=== PATIENT | female | born 1975 | race Caucasian/White ===

== ENCOUNTER → 2017-10-20 12:45 | Outpatient (CLI) | payer OTHER, SELFPAY ==
--- NOTE | 2017-10-20 12:47 | HPBI_ITS ---
MAMMOGRAPHY - BILATERAL DIAGNOSTIC REASON FOR EXAM: Female, 41 years old. Bilateral breast pain PERTINENT HISTORY: . Implants TECHNIQUE: Digital examination. Mediolateral oblique (MLO) and craniocaudad (CC) views of both breasts were obtained, along with implant displaced views and 3-D tomosynthesis. CAD: CAD was performed on this study. COMPARISON: None. FINDINGS: Breast Composition: The breasts are heterogeneously dense, which may obscure small masses. There are no dominant masses or suspicious calcifications. Implants intact and free of complication No other significant abnormalities are identified. HPBI/DIAG MAMM W/CAD, BILAT IMPRESSION: Negative diagnostic mammogram. Yearly followup recommended. ASSESSMENT CATEGORY: BIRADS Category 2: Benign. A letter regarding these results will be sent to the patient by the facility within 30 days. FOLLOW UP RECOMMENDATION: Yearly follow up mammogram recommended. (A) BR2 Approximately 10% of breast cancers are not detected by mammography. A normal mammogram should not delay biopsy of a clinically suspicious abnormality. Electronically Signed: Casey Tobar MD at 14:26 EDT , Service support ,
== END ==
PROVIDERS: Family Provider Family Medicine; PCP Family Medicine; Visit Provider Family Medicine
DX: Z12.31 Encounter for screening mammogram for malignant neoplasm of breast (principal); Z98.82 Breast implant status
CPT/HCPCS: 77062; 77066; G0279

== ENCOUNTER → 2017-12-02 11:15 | Outpatient (CLI) | payer OTHER, SELFPAY ==
--- NOTE | 2017-12-02 11:18 | MRI_ITS ---
STUDY: MRI LUMBAR SPINE WITHOUT CONTRAST REASON FOR EXAM: Female, 42 years old. Low back pain TECHNIQUE: Standardized fat and water weighted pulse sequences were obtained in the sagittal and axial planes. COMPARISON: None FINDINGS: No evidence for acute fracture or subluxation. Small interosseous hemangioma within the L2 vertebral body T12-L1: Normal endplates. Normal disc height, hydration and morphology. Normal bilateral facet joints. Normal central canal and bilateral lateral recesses. Normal bilateral intervertebral neural foramina. Normal lumbar lordosis. There is no substantial scoliosis. Normal conus medullaris that terminates at T12-L1 L1-2: Normal endplates. Normal disc height, hydration and morphology. Normal bilateral facet joints. Normal central canal and bilateral lateral recesses. Normal bilateral intervertebral neural foramina. L2-3: Normal endplates. Normal disc height, hydration and morphology. Normal bilateral facet joints. Normal central canal and bilateral lateral recesses. Normal bilateral intervertebral neural foramina. L3-4: Normal endplates. Normal disc height, hydration and mild annular bulge with associated small central disc protrusion.. Normal bilateral facet joints. Mild narrowing of the central canal. Normal bilateral lateral recesses. Normal bilateral intervertebral neural foramina. L4-5: Normal endplates. Normal disc height, desiccation and mild annular bulge.. Mild facet arthropathy.. Normal central canal . Mild bilateral recess stenosis. Normal bilateral intervertebral neural foramina. L5-S1: Degenerative endplate changes.. Normal disc height, desiccation and mild annular bulge.. Bilateral facet arthropathy.. Normal central canal. Moderate bilateral recess and neuroforaminal stenosis Normal visualized sacral ala. Normal visualized paraspinous soft tissue structures. MRI/Spine Lumbar (Routine) IMPRESSION: No evidence for acute fracture or subluxation. Spinal stenosis at L3-4, L4-5 and L5-S1 secondary to disc disease and bony hypertrophy. Electronically Signed: Toni Villagran MD at 20:12 EDT , Service support ,
== END ==
PROVIDERS: Family Provider Family Medicine; PCP Family Medicine; Visit Provider Family Medicine
DX: M51.37 Other intervertebral disc degeneration, lumbosacral region (principal); M89.38 Hypertrophy of bone, other site; M48.07 Spinal stenosis, lumbosacral region
CPT/HCPCS: 72148

== ENCOUNTER 2017-12-03 13:30 | Outpatient (RCR) | payer OTHER, SELFPAY ==
--- NOTE | 2017-10-14 11:07 | HP.PTEVAL ---
Patient's Visit Information FREDY BAUMANN is a 41 year old F referred to Physical Therapy by Irma ALMEIDA with a diagnosis of LOW BACK PAIN. Date of Evaluation: 10/14/17 Physical Therapist: Rachel Sung - Visit Plan Frequency: 2-3x /Week Duration: 4-6 Weeks Plan: POSTURE CORRECTION/STRENGTHENING, INSTRUCTION IN APPROPRIATE BODY MECHANICS AND ACTIVITY MODIFICATIONS. DLS STARTING WITH A NEUTRAL SPINE PROGRESSING ROM TOLERATED. NAEEM LE ROM, STRETCHING AND STRENGTHENING. HEP INSTRUCTION. - Subjective Subjective: Work/Leisure: [employer]. [employer]. MOSTLY DESKWORK/SALES. Disability: NO. Present symptoms: NAEEM LOW BACK PAIN. PATIENT DENIES NAEEM LE PAIN, NUMBNESS OR TINGLING. Present since: JUN 2017. Pain Scale: WORST 6/10, LEAST 2/10. Currently: 11/04. Commenced as a result of: NO APPARENT REASON. Symptoms at onset: LOWER LEFT BACK. Worse: SMALL MVMTS. SOMETIMES WALKING. SOMETIMES SITTING. SOMETIMES LYING IN BED. Better: CHANGE OF POSITION SOMETIMES HELPS. Disturbed sleep: YES. Previous history/Previous treatment: EPISODIC LBP SINCE ABOUT 2012. MAINLY SELF MANAGED. ABOUT 6 CHIROPRACTIC TREATMENTS A COUPLE YEARS AGO - NO EFFECT. Coughing/sneezing/straining: POSITIVE. Gait: MULTIPLE FALLS SINCE JUNE DUE TO LBP HITTING WHILE WALKING. MORE CAUTIOUS NOW. Difficulty initiating urinatin: NO. Accidents: NO. Unexplained weight loss: NO. Imaging: LUMBAR X-RAY AUG 2017 - PATIENT REPORTS THE DOCTOR TOLD HER THERE IS A LITTLE BIT OF ARTHRITIS. PMH: ASTHMA, ALLERGIES. Recent major surgery: UNREMARKABLE. OTHER: 2013 MRI LUMBAR BUT NOT SURE OF THE RESULTS. IT WAS DONE AT [facility]. - Objective Sitting Posture: POOR. Standing Posture: FAIR. Lordosis: NORMAL. Lateral shift: NO. Relevant shift: N/A. Active Correction of posture: NE. Other Observations: INDEP GAIT INTO PT WITHOUT ANY ASSITIVE DEVICES BUT WITH DECREASED CADANCE. Motor deficit: NAEEM LE STRENGTH 5/5 WITH MMT EXCEPT HIPS GRADED 4/5 AND APPEAR TO BE PAIN LIMITED. Sensory deficit: NAEEM LE LIGHT TOUCH SENSATION IS INTACT AND SYMMETRICAL. ROM deficit: NAEEM LE'S WFL. Reflexes: 2/2 NAEEM LE'S. Dural Signs: MILD POSITIVE NAEEM LE'S. Lumbar mvmt loss: flex - MOD. ext - YAMILE. R SG - MOD. L SG - MOD. Core strength: POOR. Palpation: TENDERNESS WITH PALPATION OF THE L5 SI REGION. INCREASED MUSCLE TONE OF LUMBAR PARASPINALS AND ALSO TENDERNESS NAEEM. OTHER: PATIENT IS PLEASANT AND COOPERATIVE TO WORK WITH. SHE APPEARS TO BE IN MORE PAIN THAN SHE REPORTS EVIDENCED BY GUARDING WITH GAIT TRANSFERS AND TESTING. - Goals Goal 1:: DECREASE C/O LBP Goal Time Frame: 4-6 Weeks Goal 2:: IMPROVE SITTING, STANDING, WALKING, BENDING, LIFTING, ADL, WORK AND SLEEP FUNCTION Goal Time Frame: 4-6 Weeks Goal 3:: INSTRUCT IN PROPHYLAXIS Goal Time Frame: 4-6 Weeks - Rehabilitation Potential Rehabilitation Potential: Fair - Anticipated Interventions Patient/Client Instruction: Educate patient on: Condition, Plan of Care, Risk Factors, Benefits of Fitness Program For the Purpose of:: To improve self management Therapeutic Exercise to Include: Strength training, Body mechanics, Postural training, Dynamic Lumbar Stabilization For the Purpose of:: To decrease pain, To improve ability of physical actions for home/community/work/leisure Manual Therapy Techniques to Include: Soft tissue mobilization For the Purpose of:: To decrease pain, To increase ROM TENS: Yes IF ES: Yes Cryotherapy (ice pack, ice massage): Yes Thermo therapy (hot pack): Yes Ultrasound (thermal/non thermal): Yes For the Purpose of:: To decrease pain, To decrease swelling/inflammation, To increase ROM Thank you for the opportunity to evaluate your patient. For Medicare and Medicare HMO plans, please review the plan of care and approve it. It will need to be FAXED BACK to us at [phone] for Medicare purposes. Please let me know if there are questions or concerns regarding this plan of care. Physician Signature: Date:
--- NOTE | 2018-04-14 12:37 | HP.PT.NRP ---
HP - Discharge Summary (1) - Patient Information FREDY BAUMANN was seen in my office for initial evaluation on 10/14/17. The following Plan of Care was established for this patient: Initial Frequency: 2-3x /Week Initial Duration: 4-6 Weeks - Anticipated Interventions Patient/Client Instruction: Educate patient on: Condition, Plan of Care, Risk Factors, Benefits of Fitness Program For the Purpose of:: To improve self management Therapeutic Exercise to Include: Strength training, Body mechanics, Postural training, Dynamic Lumbar Stabilization For the Purpose of:: To decrease pain, To improve ability of physical actions for home/community/work/leisure Manual Therapy Techniques to Include: Soft tissue mobilization For the Purpose of:: To decrease pain, To increase ROM TENS: Yes IF ES: Yes Cryotherapy (ice pack, ice massage): Yes Thermo therapy (hot pack): Yes Ultrasound (thermal/non thermal): Yes For the Purpose of:: To decrease pain, To decrease swelling/inflammation, To increase ROM This patient was last seen in our office . Pertinent comments regarding their Physical therapy will appear below: This patient has not returned to Physical Therapy and is appropriate to return to MD for further follow-up as needed. At this point I will be discontinuing this patient from physical therapy. I would be happy to see this patient again in the future if found appropriate by the physician. Thank you! Rachel Sung
== END 2017-12-03 19:00 | disposition home or self-care (01) ==
LOC: PT 13:30
PROVIDERS: Family Provider Family Medicine; PCP Family Medicine; Visit Provider Family Medicine
DX: M54.5 Low back pain (principal)
CPT/HCPCS: 97014; 97035; 97110; 97113; 97140; 97161; 97530; G0283

== ENCOUNTER → 2018-10-23 09:46 | Outpatient (CLI) | payer OTHER, SELFPAY ==
[2018-10-23 09:27] VITALS: BMI 24.3
--- NOTE | 2018-10-23 09:47 | RAD_ITS ---
STUDY: X-RAY - LEFT KNEE REASON FOR EXAM: Pain. TECHNIQUE: 4 view(s) of the knee. COMPARISON: None. FINDINGS: Normal visualized distal femur. Normal visualized proximal tibia and fibula. Normal proximal tibiofibular articulation. Normal medial femorotibial compartment. Normal lateral femorotibial compartment. Normal patellofemoral articulation. The soft tissue structures are unremarkable. RAD/Knee 4 or More Views IMPRESSION: Normal x-ray examination of the left knee. Electronically Signed: Arnaldo Delcid MD at 14:50 EDT Tel , Service support ,
== END ==
PROVIDERS: Family Provider Family Medicine; PCP Family Medicine; Referring Provider Physician Assistant; Visit Provider Physician Assistant
DX: M25.562 Pain in left knee (principal)
CPT/HCPCS: 73564

== ENCOUNTER → 2018-10-23 09:49 | Outpatient (CLI) | payer OTHER, SELFPAY ==
[2018-10-23 09:27] VITALS: BMI 24.3
--- NOTE | 2018-10-23 09:47 | RAD_ITS ---
STUDY: X-RAY - RIGHT KNEE REASON FOR EXAM: Pain. TECHNIQUE: 4 view(s) of the knee. COMPARISON: None. FINDINGS: Normal visualized distal femur. Normal visualized proximal tibia and fibula. Normal proximal tibiofibular articulation. Normal medial femorotibial compartment. Normal lateral femorotibial compartment. Normal patellofemoral articulation. The soft tissue structures are unremarkable. RAD/Knee 4 or More Views IMPRESSION: Normal x-ray examination of the right knee. Electronically Signed: Arnaldo Delcid MD at 14:49 EDT Tel , Service support ,
== END ==
LOC: HPRAD 09:49
PROVIDERS: Family Provider Family Medicine; PCP Family Medicine; Referring Provider Physician Assistant; Visit Provider Physician Assistant
DX: M25.561 Pain in right knee (principal); M25.562 Pain in left knee
CPT/HCPCS: 73564

== ENCOUNTER 2018-11-03 10:30 | Outpatient (RCR) | payer OTHER, SELFPAY ==
[2018-10-23 09:27] VITALS: BMI 24.3
--- NOTE | 2018-10-27 10:08 | HP.PTEVAL ---
Patient's Visit Information FREDY BAUMANN is a 43 year old F referred to Physical Therapy by ALANNA Tse with a diagnosis of B knee patello femoral pain. Date of Evaluation: 10/27/18 Physical Therapist: Vasiliy Smith PT, ATC - Visit Plan Frequency: 2x /Week Duration: 3 Weeks Plan: Core strengthening, LE stretching, LE strengthening (VMO and hip abductors), bike, adn HEP - Subjective Findings: Pt reports Bilat knees have been sore for approximately one month. Pt reports pain has progressively worsened over this time span. Pt reports she is an avid walk/runner, and this may have been what has caused her pain. Pt reports her pain is mostly on the medial cpmpartment of B knees. Pt denies her knees popping, locking up, or giving out at this time. Pt had xrays, which revealed no positive findings. No LE tingling or numbness at this time. No PMHx of knee pain. No sleep difficulty secondary to pain. Pt reports squatting increases her pain. Pt reports she also has pain when she is performing her run/walking activites. Nothing but meds helps to decrease her pain. 2/10 pain at rest, 8/10 pain at worst. - Pain B knees Pain Intensity (Out of 10): 2 Pain Intensity Range: 8 - Objective Neuro: B LE sensation is WNL to light touch. B achilles reflex= 2/3. Palpation: Minimal to no crepitus this date. No obvious deformity. Mild pain on medial aspect of B knees. ROM: B knee 0-135. MMT: B knee ext= 4/5 and is painful. B knee flex= 5/5. Special tests: Pos mcconnels sign Bilat knees, pos 90/90, - Goals Goal 1:: Decrease B knee pain x 50% to aid with walking tolerance Goal Time Frame: 2-4 Weeks Goal 2:: Increase B LE flexibility x 1 grade to aid with decreasing pain. Goal Time Frame: 2-4 Weeks Goal 3:: Increase B knee strength x 1 grade to aid with decreasing pain. Goal Time Frame: 2-4 Weeks Goal 4:: I with HEP Goal Time Frame: 2-4 Weeks - Rehabilitation Potential Physical Therapy Diagnosis: Pt has b knee pain, weakness, and difficulty with running activity secondary to patellofemoral syndrome. Rehabilitation Potential: Good - Anticipated Interventions Patient/Client Instruction: Educate patient on: Condition, Plan of Care For the Purpose of:: To improve self management Therapeutic Exercise to Include: Strength training, Endurance training, Balance training, Flexibilty training, Dynamic Lumbar Stabilization For the Purpose of:: To decrease pain, To increase ROM, To improve muscle performance and motor function Cryotherapy (ice pack, ice massage): Yes For the Purpose of:: To decrease pain Thank you for the opportunity to evaluate your patient. For Medicare and Medicare HMO plans, please review the plan of care and approve it. It will need to be FAXED BACK to us at [phone] for Medicare purposes. For Medicare only, by signing this I certify the plan of care. Please let me know if there are questions or concerns regarding this plan of care. Physician Signature: Date:
--- NOTE | 2019-02-09 09:15 | HP.PT.NRP ---
HP - Discharge Summary (1) - Patient Information FREDY BAUMANN was seen in my office for initial evaluation on 10/27/18. The following Plan of Care was established for this patient: Initial Frequency: 2x /Week Initial Duration: 3 Weeks - Anticipated Interventions Patient/Client Instruction: Educate patient on: Condition, Plan of Care For the Purpose of:: To improve self management Therapeutic Exercise to Include: Strength training, Endurance training, Balance training, Flexibilty training, Dynamic Lumbar Stabilization For the Purpose of:: To decrease pain, To increase ROM, To improve muscle performance and motor function Cryotherapy (ice pack, ice massage): Yes For the Purpose of:: To decrease pain This patient was last seen in our office . Pertinent comments regarding their Physical therapy will appear below: Pt was treated for one followup PT visit for her B knee pain through the date of 11/03/18. Pt has not returned since that date and is discontinued at this time. At this point I will be discontinuing this patient from physical therapy. I would be happy to see this patient again in the future if found appropriate by the physician. Thank you! Vasiliy Smith, PT, ATC
== END 2018-11-03 19:00 | disposition home or self-care (01) ==
LOC: PT 10:30
PROVIDERS: Family Provider Family Medicine; PCP Family Medicine; Referring Provider Physician Assistant; Visit Provider Physician Assistant
DX: M22.2X1 Patellofemoral disorders, right knee (principal); M25.552 Pain in left hip; M25.551 Pain in right hip
CPT/HCPCS: 97110; 97161

== ENCOUNTER → 2023-10-08 | Outpatient (CLI) | payer OTHER, SELFPAY | END | disposition home or self-care (01) | LOC: PSN 10:55 | PROVIDERS: PCP Nurse Practitioner Family; Referring Provider Nurse Practitioner Family; Visit Provider Nurse Practitioner Family | DX: J45.20 Mild intermittent asthma, uncomplicated (principal) | CPT/HCPCS: 94060; 94726; 94729 ==

== ENCOUNTER → 2023-11-12 | Outpatient (CLI) | payer OTHER, SELFPAY ==
--- NOTE | 2023-11-12 12:39 | BI_ITS ---
MAMMOGRAPHY - BILATERAL SCREENING REASON FOR EXAM: Female, 48 years old. Routine annual screening examination. PERTINENT HISTORY: Aunt with breast cancer. History of bilateral breast implants. TECHNIQUE: Digital bilateral breast izaiah (3D mammographic acquisition) in the CC and MLO projections. 2-D mediolateral oblique (MLO) and craniocaudad (CC) views of both breasts were obtained. CAD: Full Field Digital Mammography with Computer Added Detection was performed. COMPARISON: Comparison is made with prior outside examination dated November 21, 2021. FINDINGS: Breast Composition: The breasts are heterogeneously dense, which may obscure small masses. There are no dominant masses or suspicious calcifications. Stable appearance of the bilateral breast implants. No other significant abnormalities are identified. There has been no significant change since the prior study. BI/SCRN MAMM (CAD)W/IZAIAH BILAT IMPRESSION: Stable bilateral screening mammogram. Yearly follow-up mammogram recommended. (A) ASSESSMENT CATEGORY: BIRADS Category 2: Benign. A letter regarding these results will be sent to the patient by the facility within 30 days. Approximately 10% of breast cancers are not detected by mammography. A normal mammogram should not delay biopsy of a clinically suspicious abnormality. [id number] Electronically Signed: Harjit Purcell MD at 14:14 EDT ,
== END | disposition home or self-care (01) ==
LOC: OPBI 12:37
PROVIDERS: PCP Nurse Practitioner Family; Referring Provider Nurse Practitioner Family; Visit Provider Nurse Practitioner Family
DX: Z12.31 Encounter for screening mammogram for malignant neoplasm of breast (principal)
CPT/HCPCS: 77063; 77067

== ENCOUNTER → 2024-04-28 | Outpatient (CLI) | payer OTHER, SELFPAY ==
[2024-04-28 13:03] LABS: Hematocrit 39.9 % (37-47); Hemoglobin 12.7 g/dL (12.0-15.0); Mean Corp Hgb Conc 31.8 g/dL (32-36); Mean Corpuscular Hgb 30.4 pg (27.0-32.0); Mean Corpuscular Volume 95.5 fL (81-99); Mean Platelet Vol. 10.1 fl (6.2-12.0); Platelet Count 206 K/mm3 (150-450); RBC Distribution Width CV 12.7 % (11.6-14.6); RBC Distribution Width SD 44.5 fl (35.1-43.9); Red Blood Count 4.18 M/mm3 (4.2-5.4); White Blood Count 4.2 K/mm3 (4.4-11.0)
[2024-04-28 13:05] LABS: Hemoglobin A1c 4.8 % (3.8-5.6)
[2024-04-28 13:14] LABS: Anion Gap 3 (5-15); BUN 8 mg/dL (7-18); BUN/Creat Ratio 9.6 RATIO (10-20); Chloride 106 mmol/L (98-107); Cholesterol 192 mg/dL (200); Creatinine, Serum 0.84 mg/dL (0.55-1.02); EST Glomerular Filtration Rate 77 mL/min (>60); Est Glom Filt Rate - Afr Amer 93 mL/min (>60); Glucose 87 mg/dL (74-106); High Density Lipoprotein 80 mg/dL; Potassium 4.2 mmol/L (3.5-5.1); Sodium Level 138 mmol/L (136-145); Triglycerides 115 mg/dL; Very Low Density Lipoprotein 23 mg/dL (5-40)
== END | disposition home or self-care (01) ==
LOC: VSLAB 10:18
PROVIDERS: PCP Nurse Practitioner Family; Visit Provider Nurse Practitioner Family
DX: G43.909 Migraine, unspecified, not intractable, without status migrainosus (principal); Z13.1 Encounter for screening for diabetes mellitus; Z13.220 Encounter for screening for lipoid disorders
CPT/HCPCS: 36415; 80048; 80061; 83036; 84443; 85027

== ENCOUNTER → 2024-10-27 | Outpatient (CLI) | payer OTHER, SELFPAY ==
--- NOTE | 2024-10-27 11:45 | RAD_ITS ---
PROCEDURE: CHEST PA AND LATERAL 10/27/2024 REASON FOR EXAM: PNEUMONIA, UNSPECIFIED ORGANISM TECHNIQUE: Frontal and lateral views of the chest. COMPARISON: None FINDINGS: Hardware: None Heart: The heart size is normal. Mediastinum: The mediastinal contour is unremarkable. Lungs: Patchy left basilar airspace opacities. No pneumothorax. Bones: The bones are unremarkable. RAD/Chest PA and Lateral IMPRESSION: Patchy left basilar pulmonary infiltrates. Reading Location: [facility]
== END | disposition home or self-care (01) ==
LOC: RAD 11:33
PROVIDERS: PCP Nurse Practitioner Family; Referring Provider Nurse Practitioner Family; Visit Provider Nurse Practitioner Family
DX: J18.9 Pneumonia, unspecified organism (principal)
CPT/HCPCS: 71046

== ENCOUNTER → 2024-11-11 | Outpatient (CLI) | payer OTHER, SELFPAY ==
[2024-11-11 10:45] LABS: Absolute Lymphocyte Count 0.84 X10^3/uL (0.83-4.51); Absolute Neutrophil Count 5.6 X10^3/uL (2.0-7.7); Basophil# 0.04 X10^3/uL; Basophil% 0.5 % (0-1); Eosinophils% 6.8 % (0-5); Hemoglobin 13.4 g/dL (12.0-15.0); Lymphocyte # 0.84 X10^3/ul (0.83-4.51); Lymphocyte % 11.4 % (19-41); Mean Corp Hgb Conc 32.7 g/dL (32-36); Mean Corpuscular Hgb 30.7 pg (27.0-32.0); Mean Platelet Vol. 9.2 fl (6.2-12.0); Monocyte% 4.1 % (0-10); NRBC Flagged by Analyzer 0 % (0-5); Neutrophil # 5.64 X10^3/uL (2.7-7.7); Neutrophil % 76.8 % (47-70); Platelet Count 196 K/mm3 (150-450); RBC Distribution Width CV 12.7 % (11.6-14.6); RBC Distribution Width SD 43.9 fl (35.1-43.9); Red Blood Count 4.36 M/mm3 (4.2-5.4); White Blood Count 7.4 K/mm3 (4.4-11.0)
== END | disposition home or self-care (01) ==
LOC: PAVLAB 10:28
PROVIDERS: PCP Nurse Practitioner Family; Referring Provider Internal Medicine Critical Care Medicine; Visit Provider Internal Medicine Critical Care Medicine
DX: J45.909 Unspecified asthma, uncomplicated (principal)
CPT/HCPCS: 36415; 82785; 85025; 86003; 86037; 86606

== ENCOUNTER → 2024-12-16 | Outpatient (CLI) | payer OTHER, SELFPAY ==
[2024-12-16 13:12] VITALS: PULSE 103; PULSE 104; PULSE 106; PULSE 94; PULSE 99; O2SAT 97; O2SAT 98
--- NOTE | 2024-12-16 13:15 | CT_ITS ---
PROCEDURE: LOW DOSE CT LUNG SCREENING 12/16/2024 REASON FOR EXAM: H/O TOBACCO DEPENDEANCY TECHNIQUE: Low Dose CT Lung screening without contrast. Coronal and Sagittal reconstruction series were provided. One or more dose reduction techniques were used (e.g., Automated exposure control, adjustment of the mA and/or kV according to patient size, use of iterative reconstruction technique). REFERENCE LINK: [employer] Lung-RADS RADIATION DOSE SUMMARY: CTDlvol: 3.02 mGy DLP: 100.81 mGycm COMPARISON: 10/27/2024. FINDINGS: PULMONARY NODULES: (Only nodules >3mm are reported) Nodules described below are on series 2 unless otherwise specified. Pulmonary Nodules: None. Chronic interstitial pulmonary nodularity in the left lower lobe with associated centrilobular nodules and chronic interstitial infiltrates. Bilateral breast implants are noted. Normal unenhanced main pulmonary artery and right and left pulmonary arteries. Normal bilateral peripheral pulmonary arteries. Normal thoracic aorta and visualized great vessels. There is no demonstrated aortic aneurysm. Normal heart and pericardium. Normal mediastinum. Normal hilar regions. Normal visualized trachea and thickened bronchi. Normal pleura. Normal visualized upper abdomen. CT/Low Dose CT Lung Screening IMPRESSION: Chronic interstitial pulmonary nodularity in the left lower lobe with associate d centrilobular nodules and chronic interstitial infiltrates. Coronary artery calcification (CAC) is is present Lung-RADS Category: 3 PROBABLY BENIGN (BASED ON IMAGING FEATURES OR BEHAVIOR). RECOMMEND 6 MONTH LDCT. Other Significant Findings: None. Reading [facility]
--- NOTE | 2024-12-21 12:34 | PCM.PSN.6M ---
PSN 6 Minute Walk Test 6 Minute Walk Test 6 Minute Walk Test: 6 Minute Walk Test PSN:6-Minute Walk Test Start: 12/16/24 13:12 Freq: Status: Active Protocol: [id number].6MINW Document 12/16/24 13:12 LEDY (Rec: 12/16/24 13:16 LEDY [id number]) 6 Minute Walk Test Date Performed 12/16/24 Time Performed 13:00 Height 5 ft 8 in Weight: 155 lb Weight in Pounds 155.[address]: Davey Redd Assistive device None used: Pre-test Oxygen Delivery Room Air Method Pulse Ox (%) 98 Pulse Rate (60-100 94 beats/min) Dyspnea Sathya Scale ( 0 0-10) Exertion Sathya Scale 6 (6-20) 1st minute Oxygen Delivery Room Air Method Pulse Ox (%) 98 Pulse Rate (60-100 99 beats/min) 2nd minute Oxygen Delivery Room Air Method Pulse Ox (%) 97 Pulse Rate (60-100 106 H beats/min) 3rd minute Oxygen Delivery Room Air Method Pulse Ox (%) 98 Pulse Rate (60-100 106 H beats/min) 4th minute Oxygen Delivery Room Air Method Pulse Ox (%) 97 Pulse Rate (60-100 99 beats/min) 5th minute Oxygen Delivery Room Air Method Pulse Ox (%) 97 Pulse Rate (60-100 103 H beats/min) 6th minute Oxygen Delivery Room Air Method Pulse Ox (%) 97 Pulse Rate (60-100 104 H beats/min) Dyspnea Sathya Scale ( 1 0-10) Exertion Sathya Scale 11 (6-20) Post-test Oxygen Delivery Room Air Method Pulse Ox (%) 98 Pulse Rate (60-100 94 beats/min) Full Laps Walked 20 Partial Lap, Number 8 of Tiles Walked Total Distance 1188 Walked (ft) Interpretation Interpretation: The patient ambulated 1188 feet over the course of 6 minutes beginning on room air without assistive devices. Pretesting oxygen saturation was noted to be 98% on room air. With ambulation, the aisilnn oxygen saturation was 97%. There was no significant exertional oxygen desaturation. Recommendations Recommendations: There is no indication for the use of supplemental oxygen at this time.
== END | disposition home or self-care (01) ==
LOC: PSN 12:55
PROVIDERS: PCP Nurse Practitioner Family; Referring Provider Internal Medicine Critical Care Medicine; Visit Provider Internal Medicine Critical Care Medicine
DX: J45.909 Unspecified asthma, uncomplicated (principal); F17.211 Nicotine dependence, cigarettes, in remission
CPT/HCPCS: 71271; 94618